=== PATIENT | male | born 1990 | race Caucasian/White ===

== ENCOUNTER → 2017-09-01 | Emergency (ER) | payer OTHER ==
[~2017-09-01] VITALS: Ht 182.9 cm; Wt 115.7 kg
[~2017-09-01] MED LIST: AMOX-CLAV 875-1 EACH; BENADRYL25 MG PO; LEVSIN/SL0.125 MG SL; MEDROLPACK PO; ZYRTEC10 M3 PO; ZYRTEC10 MG
== END | disposition home or self-care (01) ==
LOC: ER 07:32
DX: L27.0 Generalized skin eruption due to drugs and medicaments taken internally (principal); T36.0X5A Adverse effect of penicillins, initial encounter; Y92.89 Other specified places as the place of occurrence of the external cause